=== PATIENT | male | born 1935 | race Caucasian/White ===

== ENCOUNTER 2017-02-17 08:00 | Outpatient (CLI) | payer MEDICARE, OTHER ==
[2017-02-17 13:40] LABS: BASOPHILS # (AUTO) 0.1 10^3/uL (0.0-0.1); BASOPHILS % (AUTO) 1.3 %; EOSINOPHILS # (AUTO) 0.4 10^3/uL (0.0-0.7); EOSINOPHILS % (AUTO) 8.9 %; HCT - HEMATOCRIT 39.5 % (42.0-52.0); HGB - HEMOGLOBIN 13.8 g/dL (14.0-18.0); LYMPHOCYTES # (AUTO) 1.1 10^3/uL (1.5-3.5); LYMPHOCYTES % (AUTO) 22.9 %; MEAN CORPUSCULAR HEMOGLOBIN 32.1 pg (27.0-31.0); MEAN CORPUSCULAR HGB CONC 34.9 g/dL (32.0-36.0); MEAN CORPUSCULAR VOLUME 92.1 fL (80.0-94.0); MEAN PLATELET VOLUME 9.1 fL (7.4-11.4); MONOCYTES # (AUTO) 0.4 10^3/uL (0.0-1.0); MONOCYTES % (AUTO) 8.9 %; NEUTROPHILS # (AUTO) 2.8 10^3/uL (1.5-6.6); NUCLEATED RED BLOOD CELLS AUTO 0.1 /100WBC; RED BLOOD COUNT 4.29 10^6/uL (4.70-6.10); RED CELL DISTRIBUTION WIDTH 13.9 % (12.0-15.0); UNCORRECTED WHITE BLOOD COUNT 4.8 x10^3/uL; WHITE BLOOD COUNT 4.8 x10^3/uL (4.8-10.8)
[2017-02-17 13:58] LABS: ALBUMIN/GLOBULIN RATIO 1.6 (1.0-2.2); BILIRUBIN,TOTAL 0.9 mg/dL (0.2-1.0); CALCIUM 9.1 mg/dL (8.5-10.3); POTASSIUM 4.1 mmol/L (3.5-5.0); TOTAL PROTEIN 6.2 g/dL (6.7-8.2)
== END 2017-02-17 08:01 | disposition home or self-care (01) ==
LOC: LAB.WCP 08:00
PROVIDERS: ATTEND Family Medicine
DX: Z00.00 Encounter for general adult medical examination without abnormal findings (principal); E03.9 Hypothyroidism, unspecified
CPT/HCPCS: 36415; 80053; 83690; 84443; 85025

== ENCOUNTER 2017-02-21 17:15 | Outpatient (CLI) | payer MEDICARE, OTHER | END 2017-02-21 17:16 | disposition home or self-care (01) | LOC: LAB 17:15 | PROVIDERS: ATTEND Family Medicine | DX: R42 Dizziness and giddiness (principal) | CPT/HCPCS: 36415; 84484 ==

== ENCOUNTER 2017-03-27 09:20 | Outpatient (CLI) | payer MEDICARE, OTHER | END 2017-03-27 09:21 | disposition home or self-care (01) | LOC: LAB.WCP 09:20 | PROVIDERS: ATTEND Family Medicine | DX: E03.9 Hypothyroidism, unspecified (principal) | CPT/HCPCS: 36415; 84443 ==

== ENCOUNTER 2017-04-07 08:16 | Outpatient (CLI) | payer MEDICARE, OTHER | END 2017-04-07 08:17 | disposition home or self-care (01) | LOC: DI 08:16 | PROVIDERS: ATTEND Family Medicine | DX: R00.2 Palpitations (principal); R42 Dizziness and giddiness; I08.2 Rheumatic disorders of both aortic and tricuspid valves | CPT/HCPCS: 93306 ==

== ENCOUNTER 2020-07-10 16:44 | Emergency (ER) | payer MEDICARE, OTHER ==
--- NOTE | 2020-07-10 17:06 | ED Physician Documentation ---
PD HPI CHEST PAIN - Stated complaint Stated Complaint: IRREGULAR HEART BEAT - Chief complaint Chief Complaint: Cardiac - History obtained from History obtained from: Patient - Additional information Additional information: This is an 84-year-old gentleman with history of Parkinson's, on no meds for that, also has a history of hypothyroidism, takes Synthroid, that is his only medication. Since yesterday he has had palpitations with dizziness. Feeling like his heart rate is irregular and heavy at times. There is nausea and burping with this but no chest pain or trouble breathing. It has already improved somewhat compared to earlier. Review of Systems Ten Systems: 10 systems reviewed and negative Constitutional: denies: Fever, Chills, Fatigue Cardiac: denies: Chest pain / pressure, Pedal edema, Calf pain Respiratory: denies: Cough PD PAST MEDICAL HISTORY - Past Medical History Past Medical History: Yes Cardiovascular: None Respiratory: None Neuro: Parkinson's Endocrine/Autoimmune: HyPOthyroidism GI: None : None HEENT: None Psych: None Musculoskeletal: None Derm: None - Allergies Allergies/Adverse Reactions: Allergies Allergy/AdvReac Type Severity Reaction Status Date / Time cephalexin [From Keflex] Allergy Rash Verified 07/10/20 16:54 Sulfa (Sulfonamide Allergy Hives Verified 07/10/20 16:54 Antibiotics) - Social History Does the pt smoke?: No Smoking Status: Never smoker - Immunizations Immunizations are current?: Yes PD ED PE NORMAL - Vitals Vital signs reviewed: Yes - General General: Alert and oriented X 3, No acute distress - HEENT HEENT: PERRL, EOMI - Neck Neck: Supple, no meningeal sign, No bony TTP - Cardiac Cardiac: RRR (Frequent PVCs) - Respiratory Respiratory: No respiratory distress, Clear bilaterally - Abdomen Abdomen: Non tender - Back Back: No CVA TTP, No spinal TTP - Derm Derm: Normal color, Warm and dry - Extremities Extremities: No edema, No calf tenderness / cord - Neuro Neuro: Alert and oriented X 3, Normal speech Results - Vitals Vitals: Vital Signs - 24 hr 07/10/20 16:49 Temperature 36.5 C Heart Rate 67 Respiratory 14 Rate Blood Pressure 139/83 H O2 Saturation 99 Oxygen O2 Source Room air - EKG (time done) 1655 Rate: Rate (enter#) (56) Rhythm: NSR (w freq PVCs), LAE, TESFAYE [place]: Normal Intervals: Normal [place] Ischemia: Normal ST segments, Q waves (anterior). No: ST elevation c/w ischemia, ST depression Compare to prior EKG: Old EKG unavailable Computer interpretation: Agree with computer - Labs Labs: Laboratory Tests 07/10/20 07/10/20 07/10/20 17:43 17:43 17:43 WBC 5.7 RBC 4.44 L Hgb 13.7 L Hct 41.2 L MCV 92.8 MCH 30.9 MCHC 33.3 RDW 13.5 Plt Count 150 MPV 10.2 Neut # (Auto) 4.0 Lymph # (Auto) 1.1 L [place] # (Auto) 0.5 Eos # (Auto) 0.1 Baso # (Auto) 0.0 Absolute Nucleated RBC 0.00 Nucleated RBC % 0.0 Sodium 136 Potassium 4.5 Chloride 100 L Carbon Dioxide 27 Anion Gap 9.0 BUN 22 H Creatinine 1.2 Estimated GFR (MDRD) 58 L Glucose 93 Calcium 9.1 Magnesium 2.2 Troponin I High Sens TSH 0.82 07/10/20 17:43 WBC RBC Hgb Hct MCV MCH MCHC RDW Plt Count MPV Neut # (Auto) Lymph # (Auto) [place] # (Auto) Eos # (Auto) Baso # (Auto) Absolute Nucleated RBC Nucleated RBC % Sodium Potassium Chloride Carbon Dioxide Anion Gap BUN Creatinine Estimated GFR (MDRD) Glucose Calcium Magnesium Troponin I High Sens 12.3 TSH PD MEDICAL DECISION MAKING - ED course ED course: 84-year-old gentleman presents with palpitations, dizziness. A lot of PVCs on arrival which tapered off. Only pertinent positive finding is elevated BUN which is new looking at old labs, probably some mild dehydration. He is also a heavy caffeine drinker and advised to taper that a bit. Departure - Departure Disposition: 01 Home, Self Care Clinical Impression: PVCs (premature ventricular contractions), Dehydration Condition: Good Record reviewed to determine appropriate education?: Yes Instructions: ED Dehydration, Premature Ventricular Contract About Comments: Try to decrease caffeine a bit. Return if worsening. Follow-up with your doctor regardless.
[2020-07-10 17:58] LABS: BASOPHILS % (AUTO) 0.7 %; EOSINOPHILS # (AUTO) 0.1 10^3/uL (0.0-0.7); EOSINOPHILS % (AUTO) 2.3 %; HGB - HEMOGLOBIN 13.7 g/dL (14.0-18.0); LYMPHOCYTES # (AUTO) 1.1 10^3/uL (1.5-3.5); LYMPHOCYTES % (AUTO) 18.6 %; MEAN CORPUSCULAR HEMOGLOBIN 30.9 pg (27.0-31.0); MEAN CORPUSCULAR HGB CONC 33.3 g/dL (32.0-36.0); MEAN CORPUSCULAR VOLUME 92.8 fL (80.0-94.0); MEAN PLATELET VOLUME 10.2 fL (7.4-11.4); MONOCYTES # (AUTO) 0.5 10^3/uL (0.0-1.0); MONOCYTES % (AUTO) 8.1 %; NEUTROPHILS % (AUTO) 69.9 %; PLT - PLATELET COUNT 150 10^3/uL (130-450); RED BLOOD COUNT 4.44 10^6/uL (4.70-6.10); RED CELL DISTRIBUTION WIDTH 13.5 % (12.0-15.0); WHITE BLOOD COUNT 5.7 x10^3/uL (4.8-10.8)
[2020-07-10 18:05] LABS: CALCIUM 9.1 mg/dL (8.5-10.3); CREATININE 1.2 mg/dL (0.6-1.2); MAGNESIUM 2.2 mg/dL (1.7-2.8)
[2020-07-10] MEDS ORDERED: SODIUM CHLORIDE 0.9% 1,000 ML IV STA (18:31)
[2020-07-10 19:40] VITALS: BP 156/75
== END 2020-07-10 19:48 | disposition home or self-care (01) ==
LOC: ED 16:44
DX: I49.3 Ventricular premature depolarization (principal); E86.0 Dehydration; G20 Parkinson's disease
CPT/HCPCS: 36415; 80048; 83735; 84443; 84484; 85025; 93005; 99284; 99285